=== PATIENT | female | born 1960 | race Two or more races ===

== ENCOUNTER → 2016-08-09 | Outpatient (CLI) | payer BC | END | disposition disaster alternative care site (69) | LOC: GNUT 14:25 | DX: E11.9 Type 2 diabetes mellitus without complications (principal) ==

== ENCOUNTER → 2016-09-06 | Outpatient (CLI) | payer BC | END | disposition disaster alternative care site (69) | LOC: GNUT 14:58 | DX: E11.9 Type 2 diabetes mellitus without complications (principal) | CPT/HCPCS: G0270 ==